=== PATIENT | female | born 1990 | race Caucasian/White ===

== ENCOUNTER 2020-10-10 22:16 | Emergency (ER) | payer BC ==
[~2020-10-10] VITALS: Ht 167.6 cm; Wt 156.5 kg
[2020-10-10 22:17] VITALS: BP 118/72
--- NOTE | 2020-10-10 22:20 | NUR ---
TO LOBBY A/W BED AMBULATORY
--- NOTE | 2020-10-11 00:54 | NUR ---
URINE SPECIMEN COLLECTED AND GIVEN TO PARAMJIT KRAFT
[2020-10-11 01:06] LABS: BASOPHILS # (AUTO) 0.1 K/uL (0.00-0.22); BASOPHILS % (AUTO) 0.8 % (0.0-2.0); EOSINOPHILS # (AUTO) 0.1 K/uL (0-0.4); EOSINOPHILS % (AUTO) 1.4 % (0.0-4.0); HEMATOCRIT 45.5 % (36-48); HEMOGLOBIN 15.3 g/dL (12.0-16.0); LYMPHOCYTES # (AUTO) 2.1 K/uL (2.5-16.5); LYMPHOCYTES % (AUTO) 24.8 % (20.5-51.1); MEAN CORPUSCULAR HEMOGLOBIN 29 pg (27-31); MEAN CORPUSCULAR HGB CONC 34 g/dL (33-37); MEAN CORPUSCULAR VOLUME 86.4 fL (80-94); MONOCYTES # (AUTO) 0.6 K/uL (0.8-1.0); NEUTROPHILS # (AUTO) 5.6 K/uL (1.8-7.7); PLATELET COUNT (AUTO) 216 K/uL (140-450); RED BLOOD CELL COUNT(AUTO) 5.27 MIL/uL (4.20-5.40); RED CELL DISTRIBUTION WIDTH 14.4 % (11.6-13.7); WHITE BLOOD COUNT (AUTO) 8.5 K/uL (4.8-10.8)
[2020-10-11 01:13] LABS: APPEARANCE,URINE CLEAR (CLEAR); BILIRUBIN,URINE NEGATIVE (NEGATIVE); BLOOD, URINE NEGATIVE (NEGATIVE); COLOR,URINE YELLOW (YELLOW); LEUKOCYTE ESTERASE ,URINE TRACE (NEGATIVE); NITRITE, URINE NEGATIVE (NEGATIVE); UGLUCOSE 3+ (NEGATIVE)
[2020-10-11 01:22] LABS: ALBUMIN 3.8 g/dL (3.4-5.0); ANION GAP 13.2 (8-16); CARBON DIOXIDE 27.7 mmol/L (21-32); CREATININE 0.9 mg/dL (0.6-1.3); POTASSIUM 3.9 mmol/L (3.5-5.1); TOTAL BILIRUBIN 0.6 mg/dL (0.0-1.0)
[2020-10-11 02:00] VITALS: BP 146/77
--- NOTE | 2020-10-11 02:00 | NUR ---
COVERING PRIMARY RN FOR LUNCH RELIEF. SEE COMPLETE ASSESSMENT
--- NOTE | 2020-10-11 02:00 | NUR ---
PT AMBULATORY TO BED #8
--- NOTE | 2020-10-11 02:10 | NUR ---
DR. SHELBY AT BEDSIDE FOR EVALUATION
[2020-10-11] MEDS ORDERED: VANCOMYCIN 1,000 MG in DEXTROSE 5% 250 ML IV ONE (02:15)
[2020-10-11] MEDS ORDERED: VANCOMYCIN 1,000 MG VIAL ONE (02:17)
[2020-10-11] MEDS ORDERED: SULF-58 PO (04:58)
[2020-10-11] MEDS ORDERED: CEPH-588 PO (04:58)
[2020-10-11] MEDS ORDERED: [UNRECOGNIZED DRUG - CODE] TP (05:09)
--- NOTE | 2020-10-11 05:10 | NUR ---
Patient discharged with v/s stable. Written and verbal after care instructions given and explained BY DR. SHELBY.Patient alert, oriented and verbalized understanding of instructions. Ambulatory with steady gait. All questions addressed prior to discharge. ID band removed. Patient advised to follow up with PMD. Rx of KEFLEX AND BACTRIM given. Patient educated on indication of medication including possible reaction and side effects. Opportunity to ask questions provided and answered.
== END 2020-10-11 05:10 | disposition home or self-care (01) ==
LOC: MED 22:16
DX: L03.311 Cellulitis of abdominal wall (principal); B95.62 Methicillin resistant Staphylococcus aureus infection as the cause of diseases classified elsewhere; Z79.899 Other long term (current) drug therapy; Z90.49 Acquired absence of other specified parts of digestive tract
CPT/HCPCS: 36415; 80053; 81003; 82150; 83690; 85025; 87040; 96365; 99284; J3370

== ENCOUNTER 2021-02-16 23:29 | Emergency (ER) | payer BC ==
[~2021-02-16] VITALS: Ht 167.6 cm; Wt 136.1 kg
[~2021-02-16 23:29] MED LIST: CEPH-588 PO; SULF-58 PO; [UNRECOGNIZED DRUG - CODE] TP
[2021-02-16 23:36] VITALS: BP 165/111
--- NOTE | 2021-02-16 23:36 | NUR ---
C/O LOWER BACK PAIN WHICH "STARTED AT TAILBONE" S/P SLIP & FALL 7 DAYS AGO
--- NOTE | 2021-02-17 01:06 | NUR ---
DR CAMPOVERDE EXAMINING PT IN TRIAGE
[2021-02-17] MEDS ORDERED: diazePAM 5 MG TAB PO ONE (01:15)
[2021-02-17] MEDS ORDERED: HYDROcodone/APAP 5/325 MG 1 TAB TAB PO ONE (01:15)
[2021-02-17] MEDS ORDERED: IBUPROFEN 400 MG TAB PO ONE (01:15)
[2021-02-17] MEDS ORDERED: DOCU-299 PO (03:18)
--- NOTE | 2021-02-17 03:20 | NUR ---
TO RADIOLOGY VIA W/C
[2021-02-17] MEDS ORDERED: ACET-10509 PO (03:53)
--- NOTE | 2021-02-17 03:58 | NUR ---
Patient discharged with v/s stable. Written and verbal after care instructions given and explained. Patient alert, oriented and verbalized understanding of instructions. Ambulatory with steady gait. All questions addressed prior to discharge. ID band removed. Patient advised to follow up with PMD. Rx of COLACE AND TYLENOL given. Patient educated on indication of medication including possible reaction and side effects. Opportunity to ask questions provided and answered.
== END 2021-02-17 03:58 | disposition home or self-care (01) ==
LOC: MED 23:29
DX: S32.2XXA Fracture of coccyx, initial encounter for closed fracture (principal); Z79.899 Other long term (current) drug therapy; Z79.2 Long term (current) use of antibiotics; W18.39XA Other fall on same level, initial encounter; Y92.89 Other specified places as the place of occurrence of the external cause; Y93.89 Activity, other specified; Y99.8 Other external cause status
CPT/HCPCS: 72170; 72220; 81025; 99284

== ENCOUNTER 2021-06-30 04:39 | Emergency (ER) | payer BC ==
[~2021-06-30] VITALS: Ht 167.6 cm; Wt 149.7 kg
[~2021-06-30 04:39] MED LIST changes: +ACET-10509 PO; +DOCU-299 PO
[2021-06-30 04:44] VITALS: BP 154/79
[2021-06-30] MEDS ORDERED: DEXAMETHASONE 10 MG/ML VIAL IVP ONE (05:25)
[2021-06-30] MEDS ORDERED: RACEPINEPHRINE 2.25% 13.5 MG/0.5 ML NEBU INH ONE (05:25)
[2021-06-30] MEDS ORDERED: KETOROLAC 30 MG/ML VIAL IVP ONE (05:25)
[2021-06-30] MEDS ORDERED: ALBUTEROL SULFATE/IPRATROPIU 3 ML SOL IH ONE ×2 (05:25)
[2021-06-30] MEDS ORDERED: NACL 0.9% 1,000 ML IV ONE (05:30)
--- NOTE | 2021-06-30 05:30 | NUR ---
RT AND MD AT BEDSIDE
[2021-06-30] MEDS ORDERED: cefTRIAXone 1,000 MG VIAL ONE (05:42)
--- NOTE | 2021-06-30 06:14 | NUR ---
31 y/o female bibs, C/O SOB X3 DAYS. PATIENT PRESENTS TO ED WITH DIAPHORETIC AND ACCESORY MUSCLE USE. PT STATES SHE HAD A FEVER THE FIRST 2 DAYS, COUGH WITH GREEN SPUTUM. WHOLE FAMILY IS SICK AT HOME. DENIES N/V/D; SKIN IS PINK/WARM/DRY; AAOX4 WITH EVEN AND STEADY GAIT; LUNGS DIMINISHED IN BL BASES; HR TACHY; PATIENT STATES PAIN OF 10/10 AT THIS TIME; VSS; PATIENT POSITIONED FOR COMFORT; HOB ELEVATED; BEDRAILS UP X1; BED DOWN. ER MD MADE AWARE OF PT STATUS. HX: TONSILITIS, CHOLECYSTECTOMY, AAND SEVERE SEASONAL ALLERGIES NKA MED: OTC CLARITIN
[2021-06-30] MEDS ORDERED: MAG SULF 2000 MG/WATER PREMIX 50 ML IV SCH (06:25)
--- NOTE | 2021-06-30 06:31 | NUR ---
PT FEELS BETTER. NO LONGER USING ACCESORY MUSCLE USE, NO LONGER DIAPHORETIC, AND CLAIMS THROAT IS NOT SORE.
[2021-06-30] MEDS ORDERED: FLUT1AER4 IH (06:48)
[2021-06-30] MEDS ORDERED: ALBU0.0912 IH (06:48)
[2021-06-30] MEDS ORDERED: ONDANSETRON 4 MG/2 ML VIAL IVP ONE (06:55)
--- NOTE | 2021-06-30 07:21 | NUR ---
GAVE TRANSFER OF CARE REPORT TO CHARLEE CLAY
--- NOTE | 2021-06-30 07:22 | NUR ---
REPORT RECEIVED FROM CHARLEE JAY FOR TRANSFER OF CARE
--- NOTE | 2021-06-30 07:44 | NUR ---
PT SWABBED FOR COVID AND STREP. SPECIMEN WALKED TO LAB BY STUDENTS , HANDED TO JOHNATHON. Addendum: 06/30/21 at 0814 by PHSEP PT SWABBED FOR INFLUENZA. SPECIMEN WALKED TO LAB BY STUDENTS. HANDED TO JOHNATHON
--- NOTE | 2021-06-30 08:08 | NUR ---
PT HOB RAISED FOR COMFORT. PT STATES PAIN HAS LESSENED . PT PAIN CURRENTLY 04/26
[2021-06-30 08:45] VITALS: BP 124/50
--- NOTE | 2021-06-30 08:45 | NUR ---
Patient discharged with v/s stable. Written and verbal after care instructions given and explained. Patient alert, oriented and verbalized understanding of instructions. Ambulatory with steady gait. All questions addressed prior to discharge. ID band removed. Patient advised to follow up with PMD. Rx of PROVENTIL HFA,ADVAIR HFA given. Patient educated on indication of medication including possible reaction and side effects. Opportunity to ask questions provided and answered.
--- NOTE | 2021-06-30 08:45 | NUR ---
Chart checked and completed. The patient's care was reviewed and supervised by Audrey Whitman, RN, RN.
== END 2021-06-30 08:45 | disposition home or self-care (01) ==
LOC: MED 04:39
DX: J39.2 Other diseases of pharynx (principal); Z20.822 Contact with and (suspected) exposure to COVID-19; J45.901 Unspecified asthma with (acute) exacerbation; Z79.899 Other long term (current) drug therapy
CPT/HCPCS: 87081; 87426; 87804; 93005; 94640; 96365; 96366; 96368; 96375; 99291; J0696; J1100; J1885; J2405; J3475; J7030

== ENCOUNTER 2021-08-22 23:37 | Emergency (ER) | payer BC ==
[~2021-08-22] VITALS: Ht 167.6 cm; Wt 132.9 kg
[~2021-08-22 23:37] MED LIST changes: +ALBU0.0912 IH; +FLUT1AER4 IH
[2021-08-22 23:48] VITALS: BP 133/87
--- NOTE | 2021-08-23 00:14 | NUR ---
Patient ambulated to bed 09.
[2021-08-23] MEDS ORDERED: KETOROLAC 60 MG/2 ML VIAL IM ONE (00:20)
--- NOTE | 2021-08-23 00:52 | NUR ---
31 y/o female bibs from home, C/O Pilonidal Cyst x 4 days. Patient reported, she has pilonidal cyst, seen by PMD, Rx : Ciprofloxacin. Patient states, "It popped today and it hurts really bad." A/OX4, GCS-15; UNLABORED BREATHING, SPEAKING IN FULL SENTENCES; AMBULATORY WITH STEADY GAIT. PT SEATED IN BED WITH HOB RAISED, BED IN LOWEST POSITION AND RAILS UP X2. PMHx: HTN nka med: cipro sx: cholecystectomy
--- NOTE | 2021-08-23 01:25 | NUR ---
er md at bedside examining pt
--- NOTE | 2021-08-23 01:39 | NUR ---
wound care and dressing placed on pilonidal cyst.
[2021-08-23] MEDS ORDERED: IBUP-2213 PO (01:53)
[2021-08-23] MEDS ORDERED: ACET-8386 PO (01:53)
[2021-08-23 02:01] VITALS: BP 130/82
--- NOTE | 2021-08-23 02:02 | NUR ---
Patient discharged with v/s stable. Written and verbal after care instructions given and explained. Patient alert, oriented and verbalized understanding of instructions. Ambulatory with steady gait. All questions addressed prior to discharge. ID band removed. Patient advised to follow up with PMD. Rx of NORCO (5-325) AND IBUPROFEN given. Patient educated on indication of medication including possible reaction and side effects. Opportunity to ask questions provided and answered. A/OX4, VSS, UNLABORED BREATHING, AMBULATORY, AND CALM DEMEANOR.
== END 2021-08-23 02:01 | disposition home or self-care (01) ==
LOC: MED 23:37
DX: L05.91 Pilonidal cyst without abscess (principal); Z90.49 Acquired absence of other specified parts of digestive tract; Z79.899 Other long term (current) drug therapy
CPT/HCPCS: 96372; 99283; J1885

== ENCOUNTER 2022-09-19 11:45 | Emergency (ER) | payer BC, OTHER ==
[~2022-09-19] VITALS: Ht 167.6 cm; Wt 90.7 kg
[~2022-09-19 11:45] MED LIST changes: +ACET-8905 PO; +IBUP-2213 PO
[2022-09-19 12:10] VITALS: BP 147/79; PULSE 110; RESP 20; TEMP 98; O2SAT 98
--- NOTE | 2022-09-19 12:25 | NUR ---
MARIBEL REAL AT BEDSIDE FOR EVALUATION
[2022-09-19] MEDS ORDERED: DEXAMETHASONE 10 MG/ML VIAL PO ONE (12:40)
--- NOTE | 2022-09-19 12:48 | NUR ---
pt swabbed for flu and strepx2. walked and handed to lab
[2022-09-19] MEDS ORDERED: ROBAC PO (13:08)
[2022-09-19] MEDS ORDERED: BENZ-300 PO (13:08)
[2022-09-19] MEDS ORDERED: IBUP-2213 PO (13:08)
--- NOTE | 2022-09-19 13:20 | NUR ---
Patient discharged with v/s stable. Written and verbal after care instructions given and explained. Patient verbalized understanding. Ambulatory with steady gait. All questions addressed prior to discharge. Advised to follow up with PMD.
[2022-09-19] MEDS ORDERED: AMOX1TAB8 PO (15:03)
== END 2022-09-19 13:20 | disposition home or self-care (01) ==
LOC: MED 11:45
DX: J02.9 Acute pharyngitis, unspecified (principal); Z79.899 Other long term (current) drug therapy; Z79.2 Long term (current) use of antibiotics; Z79.1 Long term (current) use of non-steroidal anti-inflammatories (NSAID)
CPT/HCPCS: 87081; 99283; J1100